=== PATIENT | female | born 1975 | race Caucasian/White ===

== ENCOUNTER → 2017-12-23 | Outpatient (CLI) | payer BC ==
[~2017-12-23] MED LIST: AMOX500T PO; Antibiotic PO; DAPT350V INJ; Rifampin IJ
== END | disposition home or self-care (01) ==
LOC: STAR 11:35
PROVIDERS: ATTEND Orthopaedic Surgery
DX: Z02.9 Encounter for administrative examinations, unspecified (principal)

== ENCOUNTER 2018-01-01 12:40 | Observation (INO) | payer BC ==
[~2018-01-01] VITALS: Ht 162.6 cm; Wt 61.0 kg
[2018-01-01] MEDS ORDERED: GABAPENTIN 300 MG CAPSULE PO ONE (13:00)
[2018-01-01] MEDS ORDERED: ACETAMINOPHEN 500 MG TABLET PO ONE (13:00)
[2018-01-01] MEDS ORDERED: SCOPOLAMINE PATCH, 1.5MG PATCH.TD72 TD ONE (13:00)
[2018-01-01] MEDS ORDERED: ONDANSETRON ODT 8 MG PO ONE (13:00)
[2018-01-01] MEDS ORDERED: LACTATED RINGERS 1,000 ML IV SCH ×2 (13:01→13:35)
[2018-01-01 13:31] VITALS: BP 113/74
[2018-01-01] MEDS ORDERED: [UNRECOGNIZED DRUG - OTHER] (13:40)
[2018-01-01] MEDS ORDERED: IRON (13:40)
[2018-01-01] MEDS ORDERED: ALPHA LIPOIC ACID (13:40)
[2018-01-01] MEDS ORDERED: TURMERIC (13:40)
[2018-01-01] MEDS ORDERED: NAC (13:40)
[2018-01-01] MEDS ORDERED: CALCIUM (13:40)
[2018-01-01] MEDS ORDERED: BACTRIM (13:40)
[2018-01-01] MEDS ORDERED: CO Q-10 (13:40)
[2018-01-01] MEDS ORDERED: VIT D (13:40)
[2018-01-01] MEDS ORDERED: VITAMIN C (13:40)
[2018-01-01] MEDS ORDERED: MAGNESIUM (13:40)
[2018-01-01] MEDS ORDERED: MIDAZOLAM 1 MG/ML, 2ML ONE (14:04)
[2018-01-01] MEDS ORDERED: FENTANYL PF 100 MCG/2ML ONE ×2 (14:04→16:18)
[2018-01-01 14:14] LABS: HCG UR SG 1.016 (1.003-1.030)
[2018-01-01] MEDS ORDERED: PROPOFOL 50 ML ONE ×2 (14:54→15:40)
[2018-01-01] MEDS ORDERED: VANCOMYCIN 500 MG ONE (15:20)
[2018-01-01] MEDS ORDERED: ROPIvacaine/PF 0.2%, 100ML 550 ML (check volume) INJ ONE (15:30)
[2018-01-01] MEDS ORDERED: ONDANSETRON 2MG/ML, 2ML IV PRN ×2 (15:30→19:30)
[2018-01-01] MEDS ORDERED: HYDROmorphone 1 MG/ML, 1ML IV PRN (15:30)
[2018-01-01] MEDS ORDERED: FENTANYL PF 100 MCG/2ML IV PRN (15:30)
[2018-01-01] MEDS ORDERED: OXYcodone 5 MG/5 ML ORAL.SOL UDC PO PRN (15:30)
[2018-01-01] MEDS ORDERED: MEPERIDINE/PF 25MG/0.5ML IVPush PRN (15:30)
[2018-01-01] MEDS ORDERED: EPHEDRINE 50 MG/ML, 1ML IM PRN (15:30)
[2018-01-01] MEDS ORDERED: ALBUTEROL/IPRATROPIUM 2.5MG/0.5MG, 3 ML NPPB PRN (15:30)
[2018-01-01] MEDS ORDERED: PROMETHAZINE 25 MG SUPP PR PRN (15:30)
[2018-01-01] MEDS ORDERED: MIDAZOLAM 1 MG/ML, 2ML IV PRN (15:30)
[2018-01-01] MEDS ORDERED: LABETALOL 5MG/ML, 20ML IV PRN (15:30)
[2018-01-01] MEDS ORDERED: LIDOCAINE-MPF 2% ,5ML ONE (16:17)
[2018-01-01] MEDS ORDERED: CEFAZOLIN 1,000 MG ONE (16:17)
[2018-01-01] MEDS ORDERED: BUPIVACAINE/PF 0.5% ONE (16:17)
[2018-01-01] MEDS ORDERED: DEXAMETHASONE 4 MG/ML, 1ML ONE (16:17)
[2018-01-01] MEDS ORDERED: PROPOFOL 10 MG/ML, 20ML ONE (16:17)
[2018-01-01 19:30] VITALS: BP 107/54
[2018-01-01] MEDS ORDERED: morphine SULFATE 10 MG/ML, 1ML IV PRN (19:30)
[2018-01-01] MEDS ORDERED: ROPIvacaine/PF 0.2%, 100ML 550 ML (check volume) INJ SCH (19:30)
[2018-01-01] MEDS: CEFAZOLIN PMX 1GM/50ML 50 ML IV SCH (22:43)
[2018-01-01] MEDS: OXYcodone/APAP 5/325MG TABLET PO PRN (22:43)
[2018-01-01 23:51] VITALS: BP 96/52
[2018-01-02 04:00] VITALS: BP 112/41
[2018-01-02] MEDS: OXYcodone/APAP 5/325MG TABLET PO PRN ×2 (05:53→09:46)
[2018-01-02] MEDS: CEFAZOLIN PMX 1GM/50ML 50 ML IV SCH (06:56)
[2018-01-02 09:15] VITALS: BP 96/51
[2018-01-02] MEDS ORDERED: OXYC5TAB3 PO (10:26)
== END 2018-01-02 11:20 | disposition home or self-care (01) ==
LOC: OUT 12:40 → 4NOR 18:01 → OUT 22:49 → 4NOR 22:50
PROVIDERS: ADMIT Orthopaedic Surgery; ATTEND Orthopaedic Surgery
DX: S99.912A Unspecified injury of left ankle, initial encounter (principal); X58.XXXA Exposure to other specified factors, initial encounter; Y93.89 Activity, other specified; Y92.89 Other specified places as the place of occurrence of the external cause
CPT/HCPCS: 27870; 73600; 76001; 81025; 88305; 96365; 96366; C1713; C1762; G0378; J0690; J1100; J2250; J2704; J2795; J3010; J3370; J3490; J7120; Q0162